=== PATIENT | female | born 1945 | race Caucasian/White ===

== ENCOUNTER 2016-08-08 05:44 | Day surgery (SDC) | payer MEDICARE ==
[2016-08-06 11:49] LABS: HEMATOCRIT 42.6 % (36.0-48.0); HEMOGLOBIN 14.3 g/dL (12-16); MCH 32.1 pg (26.0-34.0); MCHC 33.6 g/dL (31.0-37.0); MCV 95.7 fL (80.0-100.0); MEAN PLATELET VOLUME 10.1 fL (7.4-10.4); RBC 4.45 10x6/uL (4.00-5.40); RDW 13.1 % (11.5-14.5); WBC 8.4 10x3/uL (4.8-10.8)
[~2016-08-08] VITALS: Ht 157.5 cm; Wt 59.0 kg
[2016-08-08] MEDS ORDERED: ASPIRIN325 MG PO (07:07)
[2016-08-08 07:09] VITALS: BP 140/70; Ht 157.5 cm; Wt 59.0 kg
--- NOTE | 2016-08-08 09:19 | NUR ---
PILLOW BETWEEN LEGS
--- NOTE | 2016-08-08 09:28 | NUR ---
GROUNDING PAD X 2 PLACED ON PT'S RIGHT AND LEFT THIGHS PER D.N. L/N:[id number], EXP 05/26/2018 X 2
--- NOTE | 2016-08-15 09:40 | OP ---
PATIENT NAME: ALPHONSO TREJO MEDICAL RECORD: [id number] :49 LOCATION:D.OPS ADMISSION DATE: SURGEON: BOBBI PARTIDA MD DATE OF OPERATION: 08/08/2016 PREOPERATIVE DIAGNOSIS: History of complex cecal polyp. POSTOPERATIVE DIAGNOSES: History of complex cecal polyp with minimal regrowth of the polyp. PROCEDURES: 1. Total colonoscopy to the cecum. 2. Hot biopsy forceps polypectomy times 1. SURGEON: Bobbi Partida MD. SNOWBOARD INSTRUCTOR: None. BLOOD LOSS: Minimal. ANESTHESIA: General. COMPLICATIONS: None. The risks, possible complications, and alternatives to the procedure were explained to the patient. She elects to proceed. The discussion specifically included, but was not limited to, bleeding requiring an emergency reoperation, infection, endoscopic perforation and possible need for additional endoscopic procedures in the future. ENDOSCOPIC COURSE: The patient was conveyed to the operating room electively on 08/08/2016. General anesthesia was induced by anesthesia staff. The patient was placed in the [place]ig[place] position. A digital rectal examination was performed. A colonoscope was inserted through the anus. It was easily advanced to the cecum. I carefully scrutinized the cecum. I intubated the ileum, which appeared normal. I utilized routine imaging as well as narrow band imaging in the cecum. I noted only 1 tiny area of regrowth of the cecal polyp. This was treated with the hot biopsy forceps polypectomy technique. The endoscope was then withdrawn. I dragged the folds. The pullback was greater than 14-minute pullback. I irrigated and aspirated extensively. The prep was excellent. A retroflexed view was obtained in the rectum. I then unretroflexed the scope and removed it under direct vision. I will see the patient back in my office in 2-3 weeks. My plan is to return the patient's surveillance colonoscopy needs back over to Dr. Goyal, the patient's costume designer. I am going to plan for her next colonoscopy to be in 3 years. TRANSINT:[id number] Voice Confirmation ID: [id number] DOCUMENT ID: [id number] OPERATIVE REPORT [id number] ALPHONSO TREJO BOBBI PARTIDA MD at 0940 CC: LELIA GOYAL MD and NIGHAT CARDOSO MD [id number] DICTATION DATE: 08/08/16 0956 PRIMER INSERTING MACHINE OPERATOR: 08/08/16 1243 [facility] 08/08/16 [facility] [address] [facility] [place] [address]
--- NOTE | 2016-08-15 09:40 | HP ---
PATIENT: ALPHONSO TREJO MEDICAL RECORD: [id number] ACCOUNT: [id number] LOCATION:[facility] : 49 ADMISSION DATE: 08/08/16 HISTORY AND PHYSICAL EXAMINATION CHIEF COMPLAINT: Complex cecal polyp. HISTORY OF PRESENT ILLNESS: The patient is following up with argon plasma coagulation treatment for a complex cecal polyp. She has had no rectal bleeding. No abdominal pain. Due to the complexity and location of the polyp, she requires more intensive surveillance colonoscopies than most people would. Her general health is good. Activities are normal. The risks, possible complications and alternatives to colonoscopy with argon plasma coagulation therapy were explained to the patient. She elects to proceed. ALLERGIES: No known drug allergies. REVIEW OF SYSTEMS: Negative for heart disease or high blood pressure. Negative for fainting or seizures. Negative for rheumatic fever, negative for diabetes, negative for thyroid problems, negative for respiratory disease. Negative for shortness of breath. SOCIAL HISTORY: She is a smoker. I have advised her to quit smoking. PAST MEDICAL AND SURGICAL HISTORY: History of removal of colon polyps, osteoarthritis, history of hysterectomy, bilateral tubal ligation. PHYSICAL EXAMINATION: GENERAL: The patient does not appear acutely ill. She does appear chronically ill. VITAL SIGNS: Reviewed. HEAD: External ears appear normal. EYES: Extraocular movements are intact. NECK: Trachea is midline. CHEST: No intercostal retractions. PULMONARY: Nonlabored, no stridor. ABDOMEN: Nontender. IMPRESSION: History of complex cecal polyp. PLAN: We will be colonoscopy with polypectomy utilizing the argon plasma liner roll changer. TRANSINT:[id number] Voice Confirmation ID: [id number] DOCUMENT ID: [id number] HISTORY AND PHYSICAL [id number] ALPHONSO TREJO ROBERT MD at 0940 CC: LELIA DELAROSA MD and NIGHAT CARDOSO MD [id number] DICTATION DATE: 08/08/16 0849 BENCH MOVER: 08/08/16 0909 [facility] 08/08/[address] [address]
== END 2016-08-08 11:30 | disposition home or self-care (01) ==
LOC: D.OPS 05:44 → D.PAN 07:30 → D.OPS 07:30 → D.PAN 08:35 → D.OPS 08:35
PROVIDERS: Anesthesiology
DX: K63.5 Polyp of colon (principal); M19.90 Unspecified osteoarthritis, unspecified site; F17.200 Nicotine dependence, unspecified, uncomplicated